=== PATIENT | male | born 1965 | race Caucasian/White ===

== ENCOUNTER 2020-08-05 22:23 | Emergency (ER) | payer OTHER ==
[~2020-08-05] VITALS: Ht 172.7 cm; Wt 80.0 kg
[2020-08-05 22:31] VITALS: BP 138/90
== END 2020-08-06 08:28 | disposition home or self-care (01) ==
LOC: ER 22:23 → EDBD 22:23 → ER 08-06 08:28
DX: F10.129 Alcohol abuse with intoxication, unspecified (principal); I49.9 Cardiac arrhythmia, unspecified; Z98.890 Other specified postprocedural states; Y90.9 Presence of alcohol in blood, level not specified
CPT/HCPCS: 82962; 93005; 99283